=== PATIENT | female | born 1940 | race Caucasian/White ===

== ENCOUNTER → 2017-02-09 | Outpatient (CLI) | payer OTHER ==
[~2017-02-09] MED LIST: ACET-1138 PO; ADVIN25050 INH; ALLO300T2 PO; ASPEC325 PO; ATEN-175 PO; COLC0.6T54 PO; FELO1TAB7 PO; GABA-113 PO; IBUP-103 PO; LOSA50TA55 PO; MECLIZINE PO; RXC5 PO
--- NOTE | 2017-02-10 08:14 | MAMMOGRAPHY REPORT ---
BILATERAL DIGITAL SCREENING MAMMOGRAM WITH CAD: 02/09/2017 CLINICAL HISTORY: Routine screening. Patient has no complaints. TECHNIQUE: Bilateral CC and MLO views were obtained. Current study was also evaluated with a Compute r Aided Detection (CAD) system. COMPARISON: Comparison is made to exams dated: 01/24/2016 mammogram, 11/01/2014 mammogram, 10/19/2013 m ammogram, 09/13/2012 mammogram, 07/29/2011 mammogram, and 07/08/2010 mammogram - [facility]. BREAST COMPOSITION: There are scattered areas of fibroglandular density in both breasts. FINDINGS: There is a stable 8 mm nodular asymmetry in the lateral posterior right breast on the CC v iew, that is unchanged mammographically dating back to at least 07/08/2010, therefore likely benign. Another stable asymmetry is seen in the far posterior left breast along the posterior nipple line on the CC view. There are stable clustered and grouped faint punctate microcalcifications in each post erior breast and a few benign rim calcifications bilaterally. No suspicious mass, architectural disto rtion or cluster of new, suspicious microcalcifications is seen. IMPRESSION: ACR BI-RADS CATEGORY 2: BENIGN There is no mammographic evidence of malignancy. A 1 year screening mammogram is recommended. The pa tient will receive written notification of the results. Approximately 10% of breast cancers are not detected with mammography. A negative mammographic report should not delay biopsy if a clinically suggestive mass is present. Sari Arroyo M.D. ay/:02/09/2017 15:49:35 [place] Tender: Beena Magdaleno RT(Joe)(Jose)(DARON), [facility] letter sent: Normal 1/2 BI-RADS Code: ACR BI-RADS Category 2: Benign
== END | disposition home or self-care (01) ==
LOC: C.MAMM 13:48
PROVIDERS: ATTEND Family Medicine
DX: Z12.31 Encounter for screening mammogram for malignant neoplasm of breast (principal)

== ENCOUNTER 2025-04-08 11:58 | Inpatient (IN) ==
[2025-04-08] MEDS: OPTIRAY 320 125ml IV ONE (12:25)
--- NOTE | 2025-04-08 12:31 | Emergency Department Note ---
Impression & Plan Diplopia, Stroke-like symptoms ED Provider Note Provider: Beka Fuchs MD CHIEF COMPLAINT: Double vision, dizziness HISTORY OF PRESENT ILLNESS: Patient is a 84-year-old female history of hypertension, COPD, pancreatitis, and dizziness/vertigo presenting here today via ambulance from home. Patient states that she woke up this morning was feeling fine. Has a long history of vertigo/dizziness in the past and started feel little bit off. Took a meclizine and then around 9:30-10 AM had sudden onset of severe double vision issues. States when she looks out of 1 eye at a time things were okay. She denies visual loss. She denies any speech issues or numbness or tingling in extremities or face. Denies falling. Is on a baby aspirin but does not have a history of similar. Called the ambulance and brought here for further care as she felt that something just was not quite right. Maybe just a slight headache reported. PAST MEDICAL HISTORY: As noted above MEDICATIONS: Reviewed home medications includes aspirin SOCIAL HISTORY: Non-smoker PHYSICAL EXAM: GENERAL: alert and oriented in no acute distress on stretcher Head: normocephalic and atraumatic EYES: No injection, discharge or icterus. PERRL, extraocular deficits with inability to adduct the right eye to the left. NECK: Trachea midline. Supple. ENT: Mucous membranes pink and moist. LUNGS: Airway patent. No retractions. Breath sounds clear HEART: Regular rate and rhythm. No chest wall tenderness ABDOMEN: Soft and non-tender, without guarding or rebound SKIN: Acyanotic, warm, dry, without rashes EXTREMITIES: Without swelling, tenderness or deformity NEUROLOGICAL: No aphasia. No facial droop or slurred speech. Normal strength and tone in the extremities. Sensation to gross touch normal. I deficits as above. EK beats per minute. Normal sinus rhythm. No PVC or PAC. Inferior lateral T wave inversions with left axis and some LVH changes. QTc 467. No ST segment elevation noted. CONTINUOUS CARDIAC MONITORING: was ordered and showed a heart rate of 60s bpm in normal sinus rhythm Patient's laboratory studies and imaging reviewed. Differential includes Infection, dehydration, metabolic abnormality, hypo/hyperglycemia, electrolyte disturbance, anemia, hypoxia, cardiac sources, intracerebral event, toxicologic, neurologic, as well as other pathologies. IMPRESSION/MEDICAL DECISION MAKING: Evaluated in room before shortly after arrival from the ambulance and made a stroke alert. Evidence of a likely 6th nerve palsy. No other significant deficits on exam. Sent for CT and CT angiograms. Last known well approximately 10 AM and as such reached out and discussed and evaluated by the telestroke service at [place] [facility]. [place]. CT head without acute bleed. Discussed with daughter later arrives. Stressed at bedside regarding recent benefits of the procedure with thrombolytics. Aware of risk of possibly life-threatening bleeding. Contraindications reviewed no negatives. 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 Patient and daughter agree with the plan proceed with TNK. This was administered at bedside. CT angiograms without evidence of significant vascular abnormality or LVO. Blood work completed. Discussed with the hospitalist and sent to the ICU for monitoring. DIAGNOSIS: Diplopia, strokelike symptoms DISPOSITION: Hospitalist will evaluate Patient was agreeable with this plan. Critical Care I have personally spent 38 minutes of critical care time in the direct management of this patient. This includes bedside care, interpretation of diagnostic studies, and testing, discussion with consultants, patient, and family members, and other required patient management activities. These 38 minutes is in excess of all separately billable procedures. Past Med/Surg History Problem List (Updated 04/08/25 @ 13:10 by Beka Fuchs M.D.) Stroke-like symptoms (Acute) Diplopia (Acute) Tibialis anterior tendon tear, traumatic Status post right knee replacement Contusion of right knee Obesity (BMI 30-39.9) Hx of cholecystectomy Hx of appendectomy COPD (chronic obstructive pulmonary disease) HTN (hypertension) (Chronic) Left-sided thoracic back pain (Acute) Medical History Contusion of right knee COPD (chronic obstructive pulmonary disease) HTN (hypertension) Obesity (BMI 30-39.9) Pancreatitis Tibialis anterior tendon tear, traumatic Surgical History Status post right knee replacement Social History Smoking Status: Never smoker Preferred Language: Com[place] current occupational status: retired Feels Safe at Home: Yes Allergies Allergies Allergy/AdvReac Type Severity Reaction Status Date / Time WANDY Inhibitors Allergy Unknown high bp Verified 08/10/20 20:20 hydrocodone AdvReac Intermediate N/V Verified 08/10/20 20:20 Home Meds Home Medications Medication Instructions Recorded Confirmed allopurinol 300 mg tablet 300 mg PO QAM 07/21/18 04/08/25 aspirin 81 mg tablet,delayed 81 mg PO HS 07/21/18 04/08/25 release escitalopram oxalate 10 mg tablet 10 mg PO QAM 07/21/18 04/08/25 felodipine 2.5 mg tablet,extended 2.5 mg PO QAM 07/21/18 04/08/25 release 24 hr fluticasone 250 mcg-salmeterol 50 1 inh inhalation DIRECTED 07/21/18 04/08/25 mcg/dose blistr powdr for inhalation (Advair Diskus) metoprolol succinate 50 mg 50 mg PO HS 07/21/18 04/08/25 tablet,extended release 24 hr omeprazole 20 mg capsule,delayed 20 mg PO Q2D 07/21/18 04/08/25 release escitalopram oxalate 5 mg tablet 5 mg PO QPM 08/10/20 04/08/25 gabapentin 600 mg tablet 600 mg PO HS 04/08/25 04/08/25 losartan 100 mg tablet 100 mg PO DAILY 04/08/25 04/08/25 semaglutide 2 mg/dose (8 mg/3 mL) 8 mg subcut WK 04/08/25 04/08/25 subcutaneous pen injector (Ozempic) Results & Data (ED) Vital Signs Vital Signs - 24 hr 04/08/25 12:05 04/08/25 12:08 04/08/25 12:30 Temperature 36.4 C L Temperature Source Oral Pulse Rate 69 70 70 Pulse Rate [Apical] Pulse Rate from SpO2 Sensor Respiratory Rate 18 11 L Respiratory Effort / Characteristics Respiratory Depth Respiratory Pattern Blood Pressure 152/117 H 157/73 H Blood Pressure [Right Arm] Blood Pressure Mean 128 101 Blood Pressure Mean [Right Arm] Blood Pressure Position Sitting Pulse Oximetry 93 Oxygen Delivery Method Room Air Sepsis Recent Fever Within 48 Hours No Sepsis New/Unexplained Change in Mental Status No Sepsis Action Taken by Nursing No Action Required 04/08/25 12:48 04/08/25 13:07 04/08/25 13:22 Temperature 36.6 C 36.5 C Temperature Source Oral Oral Pulse Rate 69 Pulse Rate [Apical] 64 62 Pulse Rate from SpO2 Sensor 67 Respiratory Rate 23 16 20 Respiratory Effort / Characteristics Non-Labored Spontaneous Non-Labored Spontaneous Respiratory Depth Normal Normal Respiratory Pattern Regular Regular Blood Pressure 161/65 H Blood Pressure [Right Arm] 155/76 H 153/86 H Blood Pressure Mean 97 Blood Pressure Mean [Right Arm] 102 108 Blood Pressure Position Pulse Oximetry 95 96 95 Oxygen Delivery Method Room Air Room Air Sepsis Recent Fever Within 48 Hours Sepsis New/Unexplained Change in Mental Status Sepsis Action Taken by Nursing 04/08/25 13:37 04/08/25 13:52 04/08/25 14:07 Temperature 36.6 C 36.6 C 36.5 C Temperature Source Oral Oral Oral Pulse Rate Pulse Rate [Apical] 62 62 60 Pulse Rate from SpO2 Sensor Respiratory Rate 18 18 18 Respiratory Effort / Characteristics Non-Labored Spontaneous Non-Labored Spontaneous Non-Labored Spontaneous Respiratory Depth Normal Normal Normal Respiratory Pattern Regular Regular Regular Blood Pressure Blood Pressure [Right Arm] 128/65 140/67 144/74 H Blood Pressure Mean Blood Pressure Mean [Right Arm] 86 91 97 Blood Pressure Position Pulse Oximetry 96 97 97 Oxygen Delivery Method Room Air Room Air Room Air Sepsis Recent Fever Within 48 Hours Sepsis New/Unexplained Change in Mental Status Sepsis Action Taken by Nursing 04/08/25 14:22 Temperature 36.5 C Temperature Source Oral Pulse Rate Pulse Rate [Apical] 61 Pulse Rate from SpO2 Sensor Respiratory Rate 18 Respiratory Effort / Characteristics Non-Labored Spontaneous Respiratory Depth Normal Respiratory Pattern Regular Blood Pressure Blood Pressure [Right Arm] 149/70 H Blood Pressure Mean Blood Pressure Mean [Right Arm] 96 Blood Pressure Position Pulse Oximetry 97 Oxygen Delivery Method Room Air Sepsis Recent Fever Within 48 Hours Sepsis New/Unexplained Change in Mental Status Sepsis Action Taken by Nursing Laboratory Data 04/08/25 12:05 04/08/25 12:05 Lab Results 04/08/25 04/08/25 04/08/25 Range/Units 12:05 12:22 12:45 WBC 9.04 (4.8-10.8) K/ul RBC 4.78 (4.20-5.40) M/uL Hgb 14.6 (12.0-16.0) g/dL POC Hgb 13.6 (12.0-16.0) g/dl Hct 41.8 (37.0-47.0) % POC Hct 40 (37-47) % MCV 87.4 (80.0-100.0) fL MCH 30.5 (25.0-34.0) pg MCHC 34.9 (32.0-36.0) g/dL RDW Std Deviation 41.9 (36.4-46.3) fL RDW Coeff of Echo 13.1 (11.5-14.5) % Plt Count 266 (130-400) K/uL MPV 9.3 L (9.4-12.4) fL Immature Gran % (Auto) 0.4 % Neut % (Auto) 55.2 % Lymph % (Auto) 29.9 % [place] % (Auto) 8.2 % Eos % (Auto) 6.0 % Baso % (Auto) 0.3 % Neut # (Auto) 4.99 (1.40-6.50) K/uL Lymph # (Auto) 2.70 (1.20-3.40) K/uL [place] # (Auto) 0.74 H (0.11-0.59) K/uL Eos # (Auto) 0.54 H (0.00-0.50) K/uL Baso # (Auto) 0.03 (0.00-0.20) K/uL Immature Gran # (Auto) 0.04 (0.01-0.20) K/uL PT 10.4 (9.0-12.0) Seconds INR 1.0 (0.9-1.1) APTT 26 (21-31) Seconds PTT Ratio 1.0 POC Sodium 141 (135-144) mmol/L Sodium 139 (136-145) mmol/L POC Potassium 3.9 (3.3-5.0) mmol/L Potassium 4.1 (3.5-5.1) mmol/L POC Chloride 103 (101-112) mmol/L Chloride 106 (98-107) mmol/L Carbon Dioxide 27 (21-32) mmol/L POC Total CO2 24 (24-31) mmol/L Anion Gap 6 (3-11) POC Anion Gap 19.0 (16-25) mmol/L POC BUN 17 (7-18) mg/dl BUN 16 (6-23) mg/dl Creatinine 0.56 L (0.6-1.2) mg/dl POC Creatinine 0.6 (0.6-1.3) mg/dl Est Cr Clr Drug Dosing 70.1 ml/min eGFR 90.50 BUN/Creatinine Ratio 28.6 H (10-20) Glucose 95 (70-99(Fasting)) mg/dl POC Glucose 77 (70-99) mg/dl POC Glucose (other) 93 (70-99) mg/dl Calcium 9.0 (8.6-10.3) mg/dl POC Ioniz Calcium Oriana 1.21 (1.12-1.32) mmol/l Magnesium 1.6 L (1.7-2.4) mg/dl Total Bilirubin 0.5 (0.2-1.0) mg/dl AST 18 (13-39) U/L ALT 11 (7-52) U/L Alkaline Phosphatase 53 (34-104) U/L Troponin I High Sens 3.8 (0-14) pg/ml Total Protein 6.9 (6.0-8.3) gm/dl Albumin 4.2 (3.4-5.0) gm/dl Globulin 2.7 (2.5-4.0) gm/dl Albumin/Globulin Ratio 1.6 (0.9-2) Administered Medications Discontinued Medications Tenecteplase 18.5 mg/ Syringe 3.7 mls @ 44.4 mls/min IV NOW ONE; Protocol Stop: 04/08/25 13:09 Last Admin: 04/08/25 12:52 Dose: 44.4 mls/min Documented By: JACKIE Co-signed By: NAVDEEP Ioversol (Optiray 320 125ml) 112 ml IV ONCE ONE Stop: 04/08/25 12:26 Last Admin: 04/08/25 12:25 Dose: 112 ml Documented By: MARY Sodium Chloride (Sodium Chloride 0.9% 10ml Flush) 20 ml IV NOW STA Stop: 04/08/25 12:59 Last Admin: 04/08/25 12:52 Dose: 20 ml Documented By: JACKIE Imaging Data Radiologist's Impression: Head CT 04/08/25 12:11 EXAM: CT Head Without Intravenous Contrast INDICATION: Neurologic deficit TECHNIQUE: Axial computed tomography images of the head/brain without intravenous contrast. Sagittal and/or coronal reformats are provided. Sagittal and coronal reformatted images were created and reviewed. This CT exam was performed using one or more of the following dose reduction techniques: automated exposure control, adjustment of the mA and/or kV according to patient size, and/or use of iterative reconstruction technique. COMPARISON: No relevant prior studies available. FINDINGS: Limitations: None. Brain and extra-axial spaces: There is age appropriate cortical atrophy and chronic ischemic periventricular white matter hypodensity. No acute infarct, hemorrhage or mass noted. Bones/joints: No acute changes. Soft tissues: No acute abnormality noted. Vasculature: No acute abnormality noted. Sinuses: No layering fluid in the visualized portions of the paranasal sinuses. Mastoid air cells: No mastoid effusion. Orbits: No acute abnormality noted. IMPRESSION: Cerebral atrophy. No acute changes. ACT 112: N/A Electronically signed by Marii Dsouza 04-08-2025 12:52 PM Head CTA 04/08/25 12:11 [place] Images: 0 EXAM: CT Angiography Head and Neck With Intravenous Contrast INDICATION: Neurologic deficit TECHNIQUE: [place]/head and neck CT angiography protocol performed with intravenous contrast. Sagittal and coronal reformatted images were created and reviewed. This CT exam was performed using one or more of the following dose reduction techniques: automated exposure control, adjustment of the mA and/or kV according to patient size, and/or use of iterative reconstruction technique. MIP reconstructed images were created and reviewed. CONTRAST: 112 ml of Optiray 320 was administered intravenously. COMPARISON: None. FINDINGS: HEAD: Right anterior cerebral artery: No abnormality noted. No occlusion or significant stenosis. Anterior communicating artery is present. No aneurysm. Right middle cerebral artery: No abnormality noted. No occlusion or significant stenosis. No aneurysm. Right posterior cerebral artery: No abnormality noted. No occlusion or significant stenosis. No aneurysm. Right intracranial internal carotid artery: No abnormality noted. No significant stenosis. No dissection or occlusion. Right intracranial vertebral artery: No abnormality noted. No significant stenosis. No dissection or occlusion. Left anterior cerebral artery: No abnormality noted. No occlusion or significant stenosis. No aneurysm. Left middle cerebral artery: No abnormality noted. No occlusion or significant stenosis. No aneurysm. Left posterior cerebral artery: No abnormality noted. No occlusion or significant stenosis. No aneurysm. Left intracranial internal carotid artery: No abnormality noted. No significant stenosis. No dissection or occlusion. Left intracranial vertebral artery: No abnormality noted. No significant stenosis. No dissection or occlusion. Basilar artery: No abnormality noted. No occlusion or significant stenosis. No aneurysm. Other vasculature: Patent dural venous sinuses. No vascular malformation. Mastoid air cells: There is mild mucosal thickening in the base of the right mastoid. No fluid. NECK: Right common carotid artery: No abnormality noted. No significant stenosis. No dissection or occlusion. Right extracranial internal carotid artery: There is mild atherosclerotic calcification of the right cervical internal carotid bulb. No stenosis, dissection or aneurysm. Right external carotid artery: No abnormality noted. No occlusion. Right extracranial vertebral artery: No abnormality noted. No significant stenosis. No dissection or occlusion. Left common carotid artery: No abnormality noted. No significant stenosis. No dissection or occlusion. Left extracranial internal carotid artery: No abnormality noted. No significant stenosis. No dissection or occlusion. Left external carotid artery: No abnormality noted. No occlusion. Left extracranial vertebral artery: No abnormality noted. No significant stenosis. No dissection or occlusion. Lung apices: No acute abnormality noted. HEAD and NECK: Bones/joints: No significant abnormality. Soft tissues: No abnormality noted. CAROTID STENOSIS REFERENCE USING NASCET CRITERIA: % ICA stenosis = (1 - narrowest ICA diameter/diameter of distal cervical ICA) x 100. Mild - <50% stenosis. Moderate - 50-69% stenosis. Severe - 70-94% stenosis. Near occlusion - 95-99% stenosis. Occluded - 100% stenosis. IMPRESSION: No large vessel occlusion, aneurysm or dissection in the arteries of the head or neck. ACT 112: N/A Electronically signed by Marii Dsouza 04-08-2025 13:24 PM Neck CTA 04/08/25 12:11 EXAM: CT Angiography Head and Neck With Intravenous Contrast INDICATION: Neurologic deficit TECHNIQUE: [place]/head and neck CT angiography protocol performed with intravenous contrast. Sagittal and coronal reformatted images were created and reviewed. This CT exam was performed using one or more of the following dose reduction techniques: automated exposure control, adjustment of the mA and/or kV according to patient size, and/or use of iterative reconstruction technique. MIP reconstructed images were created and reviewed. CONTRAST: 112 ml of Optiray 320 was administered intravenously. COMPARISON: None. FINDINGS: HEAD: Right anterior cerebral artery: No abnormality noted. No occlusion or significant stenosis. Anterior communicating artery is present. No aneurysm. Right middle cerebral artery: No abnormality noted. No occlusion or significant stenosis. No aneurysm. Right posterior cerebral artery: No abnormality noted. No occlusion or significant stenosis. No aneurysm. Right intracranial internal carotid artery: No abnormality noted. No significant stenosis. No dissection or occlusion. Right intracranial vertebral artery: No abnormality noted. No significant stenosis. No dissection or occlusion. Left anterior cerebral artery: No abnormality noted. No occlusion or significant stenosis. No aneurysm. Left middle cerebral artery: No abnormality noted. No occlusion or significant stenosis. No aneurysm. Left posterior cerebral artery: No abnormality noted. No occlusion or significant stenosis. No aneurysm. Left intracranial internal carotid artery: No abnormality noted. No significant stenosis. No dissection or occlusion. Left intracranial vertebral artery: No abnormality noted. No significant stenosis. No dissection or occlusion. Basilar artery: No abnormality noted. No occlusion or significant stenosis. No aneurysm. Other vasculature: Patent dural venous sinuses. No vascular malformation. Mastoid air cells: There is mild mucosal thickening in the base of the right mastoid. No fluid. NECK: Right common carotid artery: No abnormality noted. No significant stenosis. No dissection or occlusion. Right extracranial internal carotid artery: There is mild atherosclerotic calcification of the right cervical internal carotid bulb. No stenosis, dissection or aneurysm. Right external carotid artery: No abnormality noted. No occlusion. Right extracranial vertebral artery: No abnormality noted. No significant stenosis. No dissection or occlusion. Left common carotid artery: No abnormality noted. No significant stenosis. No dissection or occlusion. Left extracranial internal carotid artery: No abnormality noted. No significant stenosis. No dissection or occlusion. Left external carotid artery: No abnormality noted. No occlusion. Left extracranial vertebral artery: No abnormality noted. No significant stenosis. No dissection or occlusion. Lung apices: No acute abnormality noted. HEAD and NECK: Bones/joints: No significant abnormality. Soft tissues: No abnormality noted. CAROTID STENOSIS REFERENCE USING NASCET CRITERIA: % ICA stenosis = (1 - narrowest ICA diameter/diameter of distal cervical ICA) x 100. Mild - <50% stenosis. Moderate - 50-69% stenosis. Severe - 70-94% stenosis. Near occlusion - 95-99% stenosis. Occluded - 100% stenosis. IMPRESSION: No large vessel occlusion, aneurysm or dissection in the arteries of the head or neck. ACT 112: N/A Electronically signed by Marii Dsouza 04-08-2025 12:52 PM Discharge Plan Visit Data Chief Complaint: Vertigo Stated Complaint: Vertigo/diplopia ED Provider: Beka Fuchs Discharge Problem: Diplopia, Stroke-like symptoms Patient Disposition: Admitted As Inpatient Condition: Serious Forms Stand Alone Forms: [facility] Prescriptions Prescriptions: No Action fluticasone propion-salmeterol [Advair Diskus] 250-50 mcg/dose Blister With Device 1 inh INHALATION DIRECTED felodipine 2.5 mg tablet extended release 24 hr 2.5 mg PO QAM metoprolol succinate 50 mg tablet extended release 24 hr 50 mg PO HS Rx Instructions: TUESDAYS aspirin 81 mg Tablet,Delayed Release (Dr/Ec) 81 mg PO HS omeprazole 20 mg capsule,delayed release(DR/EC) 20 mg PO Q2D allopurinol 300 mg tablet 300 mg PO QAM escitalopram oxalate 10 mg tablet 10 mg PO QAM Rx Instructions: Take with 5mg to make 15mg escitalopram oxalate 5 mg tablet 5 mg PO QPM Rx Instructions: Take with 10mg to make 15mg gabapentin 600 mg tablet 600 mg PO HS losartan 100 mg tablet 100 mg PO DAILY Ozempic 2 mg/dose (8 mg/3 mL) pen injector 8 mg SUBCUT WK Referrals Referrals: Chantelle Rojas DO [Primary Care Provider] -
[2025-04-08 12:33] LABS: Hematocrit (blood only) 41.8 % (37.0-47.0); Hemoglobin 14.6 g/dL (12.0-16.0); Immature Granulocytes # (auto) 0.04 K/uL (0.01-0.20); Immature Granulocytes % (auto) 0.4 %; Mean Corpuscular Hemoglobin 30.5 pg (25.0-34.0); Mean Corpuscular Volume 87.4 fL (80.0-100.0); Platelet Count 266 K/uL (130-400); RDW Standard Deviation 41.9 fL (36.4-46.3); Red Blood Count 4.78 M/uL (4.20-5.40); White Blood Count 9.04 K/ul (4.8-10.8)
[2025-04-08 12:52] LABS: Alanine Aminotransferase 11.0 U/L (7-52); Albumin Globulin Ratio 1.6 (0.9-2); Albumin Level 4.2 gm/dl (3.4-5.0); Alkaline Phosphatase 53.0 U/L (34-104); Anion Gap 6.0 (3-11); Bilirubin,Total 0.5 mg/dl (0.2-1.0); Blood Urea Nitrogen 16.0 mg/dl (6-23); Calcium 9.0 mg/dl (8.6-10.3); Carbon Dioxide 27.0 mmol/L (21-32); Chloride 106.0 mmol/L (98-107); Creatinine Clr Calc Pharmacy 70.1 ml/min; Globulin 2.7 gm/dl (2.5-4.0); Glucose 95.0 mg/dl (70-99(Fasting)); Magnesium 1.6 mg/dl (1.7-2.4); Potassium 4.1 mmol/L (3.5-5.1); Sodium 139.0 mmol/L (136-145); Total Protein 6.9 gm/dl (6.0-8.3)
[2025-04-08] MEDS: SODIUM CHLORIDE 0.9% 10ML FLUSH IV STA (12:52)
--- NOTE | 2025-04-08 12:53 | CT Scan Report ---
EXAM: CT Head Without Intravenous Contrast INDICATION: Neurologic deficit TECHNIQUE: Axial computed tomography images of the head/brain without intravenous contrast. Sagittal and/or coronal reformats are provided. Sagittal and coronal reformatted images were created and reviewed. This CT exam was performed using one or more of the following dose reduction techniques: automated exposure control, adjustment of the mA and/or kV according to patient size, and/or use of iterative reconstruction technique. COMPARISON: No relevant prior studies available. FINDINGS: Limitations: None. Brain and extra-axial spaces: There is age appropriate cortical atrophy and chronic ischemic periventricular white matter hypodensity. No acute infarct, hemorrhage or mass noted. Bones/joints: No acute changes. Soft tissues: No acute abnormality noted. Vasculature: No acute abnormality noted. Sinuses: No layering fluid in the visualized portions of the paranasal sinuses. Mastoid air cells: No mastoid effusion. Orbits: No acute abnormality noted. IMPRESSION: Cerebral atrophy. No acute changes. ACT 112: N/A Electronically signed by Marii Dsouza 04-08-2025 12:52 PM
[2025-04-08] MEDS ORDERED: No Aspirin within 24hrs of THROMBOLYTIC-Stroke PO SCH (13:00)
[2025-04-08 13:07] LABS: INR 1.0 (0.9-1.1); Partial Thromboplastin Time 26 Seconds (21-31); Prothrombin Time 10.4 Seconds (9.0-12.0)
--- NOTE | 2025-04-08 13:17 | History & Physical Report ---
Date of Service April 08, 2025 History of Present Illness Primary Care Provider: Chantelle Rojas DO Allergies Allergy/AdvReac Type Severity Reaction Status Date / Time WANDY Inhibitors Allergy Unknown high bp Verified 08/10/20 20:20 hydrocodone AdvReac Intermediate N/V Verified 08/10/20 20:20 Home Medications Medication Instructions Recorded Confirmed Type allopurinol 300 mg tablet 300 mg PO QAM 07/21/18 08/10/20 History aspirin 81 mg tablet,delayed 81 mg PO HS 07/21/18 08/10/20 History release escitalopram oxalate 10 mg tablet 10 mg PO QAM 07/21/18 08/10/20 History felodipine 2.5 mg tablet,extended 2.5 mg PO QAM 07/21/18 08/10/20 History release 24 hr fluticasone 250 mcg-salmeterol 50 1 inh inhalation DIRECTED 07/21/18 08/10/20 History mcg/dose blistr powdr for inhalation (Advair Diskus) gabapentin 400 mg capsule 400 mg PO HS 07/21/18 08/10/20 History losartan 100 1 tab PO QAM 07/21/18 08/10/20 History mg-hydrochlorothiazide 12.5 mg tablet metoprolol succinate 50 mg 50 mg PO HS 07/21/18 08/10/20 History tablet,extended release 24 hr omeprazole 20 mg capsule,delayed 20 mg PO Q2D 07/21/18 08/10/20 History release cholecalciferol (vitamin D3) 25 0 mcg PO QAM 08/10/20 08/10/20 History mcg (1,000 unit) tablet (Vitamin D3) escitalopram oxalate 5 mg tablet 5 mg PO QAM 08/10/20 08/10/20 History Past Med/Surg History Problem List (Updated 04/08/25 @ 13:10 by Beka Fuchs M.D.) Stroke-like symptoms (Acute) Diplopia (Acute) Tibialis anterior tendon tear, traumatic Status post right knee replacement Contusion of right knee Obesity (BMI 30-39.9) Hx of cholecystectomy Hx of appendectomy COPD (chronic obstructive pulmonary disease) HTN (hypertension) (Chronic) Left-sided thoracic back pain (Acute) Medical History Contusion of right knee COPD (chronic obstructive pulmonary disease) HTN (hypertension) Obesity (BMI 30-39.9) Pancreatitis Tibialis anterior tendon tear, traumatic Surgical History Status post right knee replacement Social History Smoking Status: Never smoker Preferred Language: Macedonian current occupational status: retired Feels Safe at Home: Yes Results & Data Results & Data Vital Signs (Past 12 Hours) Vital Signs Temp Pulse Pulse Resp BP BP Pulse Ox 04/08/25 13:07 36.6 C 64 16 155/76 H 96 04/08/25 12:48 69 23 161/65 H 95 04/08/25 12:30 70 11 L 157/73 H 04/08/25 12:08 70 04/08/25 12:05 36.4 C L 69 18 152/117 H 93 O2 Del Method 04/08/25 13:07 Room Air 04/08/25 12:48 04/08/25 12:30 04/08/25 12:08 04/08/25 12:05 Room Air
--- NOTE | 2025-04-08 13:25 | CT Scan Report ---
[facility] Images: 0 EXAM: CT Angiography Head and Neck With Intravenous Contrast INDICATION: Neurologic deficit TECHNIQUE: [place] [facility] [place]/head and neck CT angiography protocol performed with intravenous contrast. Sagittal and coronal reformatted images were created and reviewed. This CT exam was performed using one or more of the following dose reduction techniques: automated exposure control, adjustment of the mA and/or kV according to patient size, and/or use of iterative reconstruction technique. MIP reconstructed images were created and reviewed. CONTRAST: 112 ml of Optiray 320 was administered intravenously. COMPARISON: None. FINDINGS: HEAD: Right anterior cerebral artery: No abnormality noted. No occlusion or significant stenosis. Anterior communicating artery is present. No aneurysm. Right middle cerebral artery: No abnormality noted. No occlusion or significant stenosis. No aneurysm. Right posterior cerebral artery: No abnormality noted. No occlusion or significant stenosis. No aneurysm. Right intracranial internal carotid artery: No abnormality noted. No significant stenosis. No dissection or occlusion. Right intracranial vertebral artery: No abnormality noted. No significant stenosis. No dissection or occlusion. Left anterior cerebral artery: No abnormality noted. No occlusion or significant stenosis. No aneurysm. Left middle cerebral artery: No abnormality noted. No occlusion or significant stenosis. No aneurysm. Left posterior cerebral artery: No abnormality noted. No occlusion or significant stenosis. No aneurysm. Left intracranial internal carotid artery: No abnormality noted. No significant stenosis. No dissection or occlusion. Left intracranial vertebral artery: No abnormality noted. No significant stenosis. No dissection or occlusion. Basilar artery: No abnormality noted. No occlusion or significant stenosis. No aneurysm. Other vasculature: Patent dural venous sinuses. No vascular malformation. Mastoid air cells: There is mild mucosal thickening in the base of the right mastoid. No fluid. NECK: Right common carotid artery: No abnormality noted. No significant stenosis. No dissection or occlusion. Right extracranial internal carotid artery: There is mild atherosclerotic calcification of the right cervical internal carotid bulb. No stenosis, dissection or aneurysm. Right external carotid artery: No abnormality noted. No occlusion. Right extracranial vertebral artery: No abnormality noted. No significant stenosis. No dissection or occlusion. Left common carotid artery: No abnormality noted. No significant stenosis. No dissection or occlusion. Left extracranial internal carotid artery: No abnormality noted. No significant stenosis. No dissection or occlusion. Left external carotid artery: No abnormality noted. No occlusion. Left extracranial vertebral artery: No abnormality noted. No significant stenosis. No dissection or occlusion. Lung apices: No acute abnormality noted. HEAD and NECK: Bones/joints: No significant abnormality. Soft tissues: No abnormality noted. CAROTID STENOSIS REFERENCE USING NASCET CRITERIA: % ICA stenosis = (1 - narrowest ICA diameter/diameter of distal cervical ICA) x 100. Mild - <50% stenosis. Moderate - 50-69% stenosis. Severe - 70-94% stenosis. Near occlusion - 95-99% stenosis. Occluded - 100% stenosis. IMPRESSION: No large vessel occlusion, aneurysm or dissection in the arteries of the head or neck. ACT 112: N/A Electronically signed by Marii Dsouza 04-08-2025 13:24 PM
--- NOTE | 2025-04-08 13:34 | History & Physical Report ---
Date of Service April 08, 2025 Assessment & Plan (1) Stroke-like symptoms: Plan: Patient is a 84year old F with a past medical history of Type II DM, hypertension, positional vertigo, nonrheumatic mitral regurg, PVC, peripheral neuropathy, achilles tendonitis (right foot) GERD presenting with stroke-like symptoms. Symptoms began around 9:30 this morning with dizziness and took meclizine without relief. Developed double vision, gait instability, dizziness, left eye palsy at 10am and came here. Hypertensive in ED. R/O stroke in setting of focal deficits, diplopia Admit to ICU for further evaluation and management stroke-like symptoms Presenting with dizziness, diplopia, only seeing out of 1 eye, left eye palsy, ambulatory dysfunction starting at 10am s/p TNK at [address] neg Tele stroke eval in ED; formal Neuro consult ordered and pending MRI Brain ordered and pending Repeat CT head tomorrow at 1pm Echo ordered and pending No aspirin/plavix x 24 hours s/p TNK NPO- will need bedside swallow eval; advance diet as tolerated Lipids in the morning Additional plan per ICU attending #Hypertension Hypertensive in ED 152/117, down trend now 153/86 On felodipine, losartan and metoprolol at home- hold losartan #Diabetes Mellitus Type II-controlled Hold home ozempic A1C at 5% will recheck A1C in AM per stroke workup SSI while inpatient for Goal BSG 140-180 #COPD-asthma On Advair at home #GERD cotinue home PPI DVT Ppx: Scds Code status: Full PCP: Dr. Chantelle Rojas Dispo: Admit to ICU for stroke workup and management Patient seen in collaboration with Dr. Hill. Please see addendum.I spent a total of 60 minutes coordinating, documenting and providing care for this patient excluding time spent in the performance of separately billed services or time spent by another provider/QHP. (2) Diplopia: (3) COPD (chronic obstructive pulmonary disease): (4) HTN (hypertension): History of Present Illness Primary Care Provider: Chantelle Rojas DO Patient is a 84year old F with a past medical history of Type II DM, hypertension, positional vertigo, nonrheumatic mitral regurg, PVC, peripheral neuropathy, achilles tendonitis (right foot) GERD presenting with stroke-like symptoms. Symptoms began around 9:30 this morning with dizziness and took meclizine without relief. Developed double vision, gait instability, dizziness, left eye palsy at 10am and came here. Hypertensive in ED. Denies fever, chills, weight loss, weakness, headache, cognitive changes, hearing changes, chest pain, SOB, swelling, difficulty breathing, urinary concerns, N/V/D, joint swelling/pain, skin rashes, lesions, bleeding, bruising. Discussed with ED provider stroke workup, treatment in the ED and reason for admission to ICU status post TNK administration. In the emergency department, patient was hypertensive 150's/110's. Diplopia and ocular motor palsy noted in the ED. Symptoms began at 10am, tele neuro consult in the ED with rec for TNK administered at 1252. On aspirin at home with no anticoagulation. EKG: NSR with no ST elevation, rate 61 bpm, QTc 467, LVHHead CT revealed negative. Head/Neck CTA showing no large vessel occlusion, aneurysm or dissection in the arteries of the head or neck. Upon review of labs, Mag noted to 1.6 and replaced. No evidence of infection or sepsis. History obtained primarily from the patient and via hospitalization record. The patient's family was at the bedside and assisted with history of present illness. External chart review obtained from [facility] for labs and home medications. Allergies Allergy/AdvReac Type Severity Reaction Status Date / Time WANDY Inhibitors Allergy Unknown high bp Verified 08/10/20 20:20 hydrocodone AdvReac Intermediate N/V Verified 08/10/20 20:20 Home Medications Medication Instructions Recorded Confirmed Type allopurinol 300 mg tablet 300 mg PO QAM 07/21/18 04/08/25 History aspirin 81 mg tablet,delayed 81 mg PO HS 07/21/18 04/08/25 History release escitalopram oxalate 10 mg tablet 10 mg PO QAM 07/21/18 04/08/25 History felodipine 2.5 mg tablet,extended 2.5 mg PO QAM 07/21/18 04/08/25 History release 24 hr fluticasone 250 mcg-salmeterol 50 1 inh inhalation DIRECTED 07/21/18 04/08/25 History mcg/dose blistr powdr for inhalation (Advair Diskus) metoprolol succinate 50 mg 50 mg PO HS 07/21/18 04/08/25 History tablet,extended release 24 hr omeprazole 20 mg capsule,delayed 20 mg PO Q2D 07/21/18 04/08/25 History release escitalopram oxalate 5 mg tablet 5 mg PO QPM 08/10/20 04/08/25 History gabapentin 600 mg tablet 600 mg PO HS 04/08/25 04/08/25 History losartan 100 mg tablet 100 mg PO DAILY 04/08/25 04/08/25 History semaglutide 2 mg/dose (8 mg/3 mL) 8 mg subcut WK 04/08/25 04/08/25 History subcutaneous pen injector (Ozempic) Past Med/Surg History Problem List (Updated 04/08/25 @ 15:40 by John Camarillo MD) tPA adm status 24 hr [employer] Stroke-like symptoms (Acute) Diplopia (Acute) Tibialis anterior tendon tear, traumatic Status post right knee replacement Contusion of right knee Obesity (BMI 30-39.9) Hx of cholecystectomy Hx of appendectomy COPD (chronic obstructive pulmonary disease) HTN (hypertension) (Chronic) Left-sided thoracic back pain (Acute) Medical History Contusion of right knee COPD (chronic obstructive pulmonary disease) HTN (hypertension) Obesity (BMI 30-39.9) Pancreatitis Tibialis anterior tendon tear, traumatic Surgical History Status post right knee replacement Social History Smoking Status: Never smoker Hx Alcohol Use: No Hx Substance Use: No Preferred Language: Slovak Communication Ability: Effective Verify Rep Required: No Beliefs That Will Affect Care: None Current Living Situation: Family current occupational status: retired Feels Safe at Home: Yes Safety Concerns: Feels Safe At This Time Assistive Devices: Cane Review of Systems Review of Systems: All systems reviewed & are unremarkable except as noted in HPI & below Physical Exam Physical Exam: VITALS: Reviewed. WEIGHT/BMI reviewed. GEN: Healthy appearing, well-developed, NAD. PSYCH: Good Judgment. AOx3. Normal memory, mood, and affect. HEENT -Head: NC/AT; -Eyes: PERRL, EOMI. No discharge or redn ess; -Ears: External ears are normal. -Nose: Normal nares. -Mouth and throat: MMM. Normal gums, muc fred, palate,. Good dentition. NECK: Supple, with no masses. Swallowing saliva ok CV: + murmur, no swelling, regular rhythm LUNGS: CTAB, no w/r/c. ABD: Soft, NT/ND, NBS, no masses or organomegaly. : N/A SKIN: Warm, well perfused. No skin rashes or abnormal lesions. MSK: No deformities, Normal gait. EXT: No clubbing, cyanosis, or edema. NEURO: speech clear, left eye palsy, left eye ptosis, facial symmetry intact, right foot drop noted (stated to be baseline), follows command, no arm drift Results & Data Results & Data Vital Signs (Past 12 Hours) Vital Signs Temp Pulse Pulse Resp BP BP Pulse Ox 04/08/25 13:22 36.5 C 62 20 153/86 H 95 04/08/25 13:07 36.6 C 64 16 155/76 H 96 04/08/25 12:48 69 23 161/65 H 95 04/08/25 12:30 70 11 L 157/73 H 04/08/25 12:08 70 04/08/25 12:05 36.4 C L 69 18 152/117 H 93 O2 Del Method 04/08/25 13:22 Room Air 04/08/25 13:07 Room Air 04/08/25 12:48 04/08/25 12:30 04/08/25 12:08 04/08/25 12:05 Room Air Laboratory Results Short CBC 04/08/25 Range/Units 12:05 WBC 9.04 (4.8-10.8) K/ul Hgb 14.6 (12.0-16.0) g/dL Hct 41.8 (37.0-47.0) % Plt Count 266 (130-400) K/uL BMP 04/08/25 12:05 Sodium 139 Potassium 4.1 Chloride 106 Carbon Dioxide 27 BUN 16 Creatinine 0.56 L Glucose 95 Calcium 9.0 Liver Function 04/08/25 Range/Units 12:05 Total Bilirubin 0.5 (0.2-1.0) mg/dl AST 18 (13-39) U/L ALT 11 (7-52) U/L Alkaline Phosphatase 53 (34-104) U/L Albumin 4.2 (3.4-5.0) gm/dl Diagnostic Findings Head CT 04/08/25 12:11 EXAM: CT Head Without Intravenous Contrast INDICATION: Neurologic deficit TECHNIQUE: Axial computed tomography images of the head/brain without intravenous contrast. Sagittal and/or coronal reformats are provided. Sagittal and coronal reformatted images were created and reviewed. This CT exam was performed using one or more of the following dose reduction techniques: automated exposure control, adjustment of the mA and/or kV according to patient size, and/or use of iterative reconstruction technique. COMPARISON: No relevant prior studies available. FINDINGS: Limitations: None. Brain and extra-axial spaces: There is age appropriate cortical atrophy and chronic ischemic periventricular white matter hypodensity. No acute infarct, hemorrhage or mass noted. Bones/joints: No acute changes. Soft tissues: No acute abnormality noted. Vasculature: No acute abnormality noted. Sinuses: No layering fluid in the visualized portions of the paranasal sinuses. Mastoid air cells: No mastoid effusion. Orbits: No acute abnormality noted. IMPRESSION: Cerebral atrophy. No acute changes. ACT 112: N/A Electronically signed by Marii Dsouza 04-08-2025 12:52 PM Head CTA 04/08/25 12:11 [place] Images: 0 EXAM: CT Angiography Head and Neck With Intravenous Contrast INDICATION: Neurologic deficit TECHNIQUE: [place] [facility] [place]/head and neck CT angiography protocol performed with intravenous contrast. Sagittal and coronal reformatted images were created and reviewed. This CT exam was performed using one or more of the following dose reduction techniques: automated exposure control, adjustment of the mA and/or kV according to patient size, and/or use of iterative reconstruction technique. MIP reconstructed images were created and reviewed. CONTRAST: 112 ml of Optiray 320 was administered intravenously. COMPARISON: None. FINDINGS: HEAD: Right anterior cerebral artery: No abnormality noted. No occlusion or significant stenosis. Anterior communicating artery is present. No aneurysm. Right middle cerebral artery: No abnormality noted. No occlusion or significant stenosis. No aneurysm. Right posterior cerebral artery: No abnormality noted. No occlusion or significant stenosis. No aneurysm. Right intracranial internal carotid artery: No abnormality noted. No significant stenosis. No dissection or occlusion. Right intracranial vertebral artery: No abnormality noted. No significant stenosis. No dissection or occlusion. Left anterior cerebral artery: No abnormality noted. No occlusion or significant stenosis. No aneurysm. Left middle cerebral artery: No abnormality noted. No occlusion or significant stenosis. No aneurysm. Left posterior cerebral artery: No abnormality noted. No occlusion or significant stenosis. No aneurysm. Left intracranial internal carotid artery: No abnormality noted. No significant stenosis. No dissection or occlusion. Left intracranial vertebral artery: No abnormality noted. No significant stenosis. No dissection or occlusion. Basilar artery: No abnormality noted. No occlusion or significant stenosis. No aneurysm. Other vasculature: Patent dural venous sinuses. No vascular malformation. Mastoid air cells: There is mild mucosal thickening in the base of the right mastoid. No fluid. NECK: Right common carotid artery: No abnormality noted. No significant stenosis. No dissection or occlusion. Right extracranial internal carotid artery: There is mild atherosclerotic calcification of the right cervical internal carotid bulb. No stenosis, dissection or aneurysm. Right external carotid artery: No abnormality noted. No occlusion. Right extracranial vertebral artery: No abnormality noted. No significant stenosis. No dissection or occlusion. Left common carotid artery: No abnormality noted. No significant stenosis. No dissection or occlusion. Left extracranial internal carotid artery: No abnormality noted. No significant stenosis. No dissection or occlusion. Left external carotid artery: No abnormality noted. No occlusion. Left extracranial vertebral artery: No abnormality noted. No significant stenosis. No dissection or occlusion. Lung apices: No acute abnormality noted. HEAD and NECK: Bones/joints: No significant abnormality. Soft tissues: No abnormality noted. CAROTID STENOSIS REFERENCE USING NASCET CRITERIA: % ICA stenosis = (1 - narrowest ICA diameter/diameter of distal cervical ICA) x 100. Mild - <50% stenosis. Moderate - 50-69% stenosis. Severe - 70-94% stenosis. Near occlusion - 95-99% stenosis. Occluded - 100% stenosis. IMPRESSION: No large vessel occlusion, aneurysm or dissection in the arteries of the head or neck. ACT 112: N/A Electronically signed by Marii Dsouza 04-08-2025 13:24 PM Neck CTA 04/08/25 12:11 EXAM: CT Angiography Head and Neck With Intravenous Contrast INDICATION: Neurologic deficit TECHNIQUE: [place] [facility] [place]/head and neck CT angiography protocol performed with intravenous contrast. Sagittal and coronal reformatted images were created and reviewed. This CT exam was performed using one or more of the following dose reduction techniques: automated exposure control, adjustment of the mA and/or kV according to patient size, and/or use of iterative reconstruction technique. MIP reconstructed images were created and reviewed. CONTRAST: 112 ml of Optiray 320 was administered intravenously. COMPARISON: None. FINDINGS: HEAD: Right anterior cerebral artery: No abnormality noted. No occlusion or significant stenosis. Anterior communicating artery is present. No aneurysm. Right middle cerebral artery: No abnormality noted. No occlusion or significant stenosis. No aneurysm. Right posterior cerebral artery: No abnormality noted. No occlusion or significant stenosis. No aneurysm. Right intracranial internal carotid artery: No abnormality noted. No significant stenosis. No dissection or occlusion. Right intracranial vertebral artery: No abnormality noted. No significant stenosis. No dissection or occlusion. Left anterior cerebral artery: No abnormality noted. No occlusion or significant stenosis. No aneurysm. Left middle cerebral artery: No abnormality noted. No occlusion or significant stenosis. No aneurysm. Left posterior cerebral artery: No abnormality noted. No occlusion or significant stenosis. No aneurysm. Left intracranial internal carotid artery: No abnormality noted. No significant stenosis. No dissection or occlusion. Left intracranial vertebral artery: No abnormality noted. No significant stenosis. No dissection or occlusion. Basilar artery: No abnormality noted. No occlusion or significant stenosis. No aneurysm. Other vasculature: Patent dural venous sinuses. No vascular malformation. Mastoid air cells: There is mild mucosal thickening in the base of the right mastoid. No fluid. NECK: Right common carotid artery: No abnormality noted. No significant stenosis. No dissection or occlusion. Right extracranial internal carotid artery: There is mild atherosclerotic calcification of the right cervical internal carotid bulb. No stenosis, dissection or aneurysm. Right external carotid artery: No abnormality noted. No occlusion. Right extracranial vertebral artery: No abnormality noted. No significant stenosis. No dissection or occlusion. Left common carotid artery: No abnormality noted. No significant stenosis. No dissection or occlusion. Left extracranial internal carotid artery: No abnormality noted. No significant stenosis. No dissection or occlusion. Left external carotid artery: No abnormality noted. No occlusion. Left extracranial vertebral artery: No abnormality noted. No significant stenosis. No dissection or occlusion. Lung apices: No acute abnormality noted. HEAD and NECK: Bones/joints: No significant abnormality. Soft tissues: No abnormality noted. CAROTID STENOSIS REFERENCE USING NASCET CRITERIA: % ICA stenosis = (1 - narrowest ICA diameter/diameter of distal cervical ICA) x 100. Mild - <50% stenosis. Moderate - 50-69% stenosis. Severe - 70-94% stenosis. Near occlusion - 95-99% stenosis. Occluded - 100% stenosis. IMPRESSION: No large vessel occlusion, aneurysm or dissection in the arteries of the head or neck. ACT 112: N/A Electronically signed by Marii Dsouza 04-08-2025 12:52 PM Supervising Physician Co-Signing Physician Notes Patient is an 84-year-old female with history of diabetes mellitus, hypertension, positional vertigo, gout, PVCs and other medical problems presents with history of strokelike symptoms. Patient developed significant dizziness associated with double vision, gait instability this morning. Patient also felt nauseous and believed the symptoms were different from her usual vertigo symptoms. Telestroke consultation was conducted with her she and patient was advised to give TNK. Patient denies any focal weakness, numbness, chest pain, dyspnea, palpitations, bowel or bladder incontinence, slurred speech, trouble swallowing. Please review HPI for complete details of presentation. I personally reviewed blood work and imaging studies. CT head showed cerebral atrophy. CTA head and neck showed no acute process. On exam patient is obese, no apparent distress, normocephalic atraumatic, EOMI, left eye ptosis,+ double vision, S1-S2,+ murmur, no pedal edema, clear to auscultation, normal breath sounds, abdomen soft, nontender, normal bowel sounds, alert, awake, oriented, chronic right foot drop,+ chronic decreased bilateral lower extremity sensation due to neuropathy. Grossly no focal deficits. Patient is admitted for management of strokelike symptoms/diplopia. R/O CVA. S/P TNK. Patient will be admitted to ICU for further management. Allow permissive hypertension. No aspirin, Plavix, anticoagulation for 24 hours post TNK. Will repeat CT head after 24 hours per protocol. Obtain MRI brain, echo, lipid panel, A1c. Appreciate bpm analyst help. Will consult neurology, neurochecks. PT OT, speech eval. May need ophthalmology evaluation as outpatient. I personally interviewed and examined the patient at bedside. I have reviewed the advanced practitioner's documentation on the date of service referred in note and agree with plan. Patient's care is coordinated with Barbara Watts NP. Please refer to the documentation above for details of patient's presentation and for discussion of other issues. I spent a total of 38minutes coordinating, documenting, and providing care for this patient excluding time spent in the performance of separately billed services or time spent by another provider/QHP.
[2025-04-08] MEDS ORDERED: ACETAMINOPHEN 325 MG TAB PO PRN (14:53)
[2025-04-08] MEDS ORDERED: GLUCOSE 40% GEL 15 GM TUBE PO PRN (14:53)
[2025-04-08] MEDS ORDERED: LABETALOL HCL IV 5 MG/ML 20ML IV PRN (14:53)
[2025-04-08] MEDS ORDERED: DEXTROSE 50% 50 ML SYRINGE IV PRN (14:53)
[2025-04-08] MEDS ORDERED: PHARMACIST DISCHARGE MED REC CONSULT PRN (14:53)
[2025-04-08] MEDS ORDERED: GLUCOSE 10 TAB/TUBE PO PRN (14:53)
[2025-04-08] MEDS ORDERED: CARBOHYDRATES FOR HYPOGLYCEMIA PO PRN (14:53)
[2025-04-08] MEDS ORDERED: GLUCAGON FOR INJ 1 MG VIAL SQ PRN (14:53)
--- NOTE | 2025-04-08 15:28 | XCELERA ---
[id number]
--- NOTE | 2025-04-08 15:32 | Critical Care Consultation ---
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 Her neuro symptoms have resolved and her NIH is 0. Recommendations: 1. Status post TNK: Continue to observe in the ICU 24 hours for bleeding complications per protocol. Repeat CT scan to tomorrow afternoon and if unremarkable, can be dismissed from the ICU. Will need echocardiogram, PT and OT evaluations, as well as speech therapy evaluation 2. Acute diplopia: Resolved. Await MRI imaging 3. Hypertension: Continue metoprolol. Can likely restart her losartan and felodipine sequentially based on blood pressure control. Will try to keep blood pressure around 140-170 currently. 3. Continue her outpatient medications The above recommendations and plan were discussed with the patient as well as with the bedside critical care nurse to. Questions were answered the best my ability. She expressed understanding and is in agreement with the plan as outlined. History of Present Illness Attending Physician: Mehran Hill MD History of Present Illness Asked by hospitalist to assist in evaluation management this patient status post systemic thrombolytics for strokelike symptoms. History is obtained from discussion with the patient as well as review of the electronic medical record. Patient is an 84-year-old female with a history of hypertension and vertigo who had the acute onset of diplopia earlier today. She was brought in the emergency room and had CT imaging performed which was unrevealing. Telestroke consultation was conducted with Nora who recommended administration of systemic thrombolysis patient was consented for TNK and this was administered around 1 PM. She was then admitted to the ICU. She was mildly hypertensive on presentation but did not require additional medications. She states she is taking all of her blood pressure medicines. I assessed the patient in the ICU. She is now awake alert and conversant. Her diplopia is resolved. NIH is 0. She denies any nausea vomiting. No dizziness or headache. Allergies Allergy/AdvReac Type Severity Reaction Status Date / Time WANDY Inhibitors Allergy Unknown high bp Verified 08/10/20 20:20 hydrocodone AdvReac Intermediate N/V Verified 08/10/20 20:20 Home Medications Medication Instructions Recorded Confirmed Type allopurinol 300 mg tablet 300 mg PO QAM 07/21/18 04/08/25 History aspirin 81 mg tablet,delayed 81 mg PO HS 07/21/18 04/08/25 History release escitalopram oxalate 10 mg tablet 10 mg PO QAM 07/21/18 04/08/25 History felodipine 2.5 mg tablet,extended 2.5 mg PO QAM 07/21/18 04/08/25 History release 24 hr fluticasone 250 mcg-salmeterol 50 1 inh inhalation DIRECTED 07/21/18 04/08/25 History mcg/dose blistr powdr for inhalation (Advair Diskus) metoprolol succinate 50 mg 50 mg PO HS 07/21/18 04/08/25 History tablet,extended release 24 hr omeprazole 20 mg capsule,delayed 20 mg PO Q2D 07/21/18 04/08/25 History release escitalopram oxalate 5 mg tablet 5 mg PO QPM 08/10/20 04/08/25 History gabapentin 600 mg tablet 600 mg PO HS 04/08/25 04/08/25 History losartan 100 mg tablet 100 mg PO DAILY 04/08/25 04/08/25 History semaglutide 2 mg/dose (8 mg/3 mL) 8 mg subcut WK 04/08/25 04/08/25 History subcutaneous pen injector (Ozempic) Patient History Medical History Contusion of right knee COPD (chronic obstructive pulmonary disease) HTN (hypertension) Obesity (BMI 30-39.9) Pancreatitis Tibialis anterior tendon tear, traumatic Surgical History Status post right knee replacement Social History Smoking Status: Never smoker Preferred Language: Russian current occupational status: retired Feels Safe at Home: Yes Review of Systems Review of Systems: Please refer to admission H&P. No additions or deletions Physical Exam Constitutional: WD/WN, vitals as above Neck: trachea midline, no thyromegaly Respiratory: normal respiratory effort, lungs clear to auscultation Cardiovascular: RRR, no murmur, no edema Gastrointestinal (Abdomen): normal bowel sounds, soft, nontender, no hepatosplenomegaly Musculoskeletal: Extremities: extremities normal to inspection Skin: no rashes, warm and dry Neurologic: Normal neuroexam. No evidence of cerebellar dysfunction. Lymphatic: no cervical lymphadenopathy Results & Data Results & Data Vital Signs (Past 12 Hours) Vital Signs Temp Pulse Pulse Resp BP BP Pulse Ox 04/08/25 14:46 04/08/25 14:37 36.6 C 63 18 140/65 97 04/08/25 14:22 36.5 C 61 18 149/70 H 97 04/08/25 14:07 36.5 C 60 18 144/74 H 97 04/08/25 13:52 36.6 C 62 18 140/67 97 04/08/25 13:37 36.6 C 62 18 128/65 96 04/08/25 13:22 36.5 C 62 20 153/86 H 95 04/08/25 13:07 36.6 C 64 16 155/76 H 96 04/08/25 12:48 69 23 161/65 H 95 04/08/25 12:30 70 11 L 157/73 H 04/08/25 12:08 70 04/08/25 12:05 36.4 C L 69 18 152/117 H 93 O2 Del Method 04/08/25 14:46 Room Air 04/08/25 14:37 Room Air 04/08/25 14:22 Room Air 04/08/25 14:07 Room Air 04/08/25 13:52 Room Air 04/08/25 13:37 Room Air 04/08/25 13:22 Room Air 04/08/25 13:07 Room Air 04/08/25 12:48 04/08/25 12:30 04/08/25 12:08 04/08/25 12:05 Room Air Critical Care Results & Data Vital Signs (Past 12 Hours) Vital Signs Temp Pulse Pulse Resp BP BP Pulse Ox 04/08/25 14:46 04/08/25 14:37 36.6 C 63 18 140/65 97 04/08/25 14:22 36.5 C 61 18 149/70 H 97 04/08/25 14:07 36.5 C 60 18 144/74 H 97 04/08/25 13:52 36.6 C 62 18 140/67 97 04/08/25 13:37 36.6 C 62 18 128/65 96 04/08/25 13:22 36.5 C 62 20 153/86 H 95 11/30/25 13:07 36.6 C 64 16 155/76 H 96 04/08/25 12:48 69 23 161/65 H 95 04/08/25 12:30 70 11 L 157/73 H 04/08/25 12:08 70 04/08/25 12:05 36.4 C L 69 18 152/117 H 93 O2 Del Method 04/08/25 14:46 Room Air 04/08/25 14:37 Room Air 04/08/25 14:22 Room Air 04/08/25 14:07 Room Air 04/08/25 13:52 Room Air 04/08/25 13:37 Room Air 04/08/25 13:22 Room Air 04/08/25 13:07 Room Air 04/08/25 12:48 04/08/25 12:30 04/08/25 12:08 04/08/25 12:05 Room Air Lab & Micro Results (Past 24 Hours) RBC 4.78 M/uL (4.20-5.40) 04/08/25 WBC 9.04 K/ul (4.8-10.8) 04/08/25 Hgb 14.6 g/dL (12.0-16.0) 04/08/25 Hct 41.8 % (37.0-47.0) 04/08/25 MCV 87.4 fL (80.0-100.0) 04/08/25 MCH 30.5 pg (25.0-34.0) 04/08/25 MCHC 34.9 g/dL (32.0-36.0) 04/08/25 RDW Standard Deviation 41.9 fL (36.4-46.3) 04/08/25 RDW Coefficient of Variation 13.1 % (11.5-14.5) 04/08/25 Plt Count 266 K/uL (130-400) 04/08/25 MPV 9.3 fL (9.4-12.4) L 04/08/25 Neutrophils (%) (Auto) 55.2 % 04/08/25 Lymphocytes (%) (Auto) 29.9 % 04/08/25 Monocytes # (Auto) 0.74 K/uL (0.11-0.59) H 04/08/25 Eosinophils # (Auto) 0.54 K/uL (0.00-0.50) H 04/08/25 Immature Granulocyte % (Auto) 0.4 % 04/08/25 Neutrophils # (Auto) 4.99 K/uL (1.40-6.50) 04/08/25 Lymphocytes # (Auto) 2.70 K/uL (1.20-3.40) 04/08/25 Monocytes # (Auto) 0.74 K/uL (0.11-0.59) H 04/08/25 Eosinophils # (Auto) 0.54 K/uL (0.00-0.50) H 04/08/25 Basophils # (Auto) 0.03 K/uL (0.00-0.20) 04/08/25 Immature Granulocyte # (Auto) 0.04 K/uL (0.01-0.20) 5 Na 139 mmol/L (136-145) 04/08/25 K 4.1 mmol/L (3.5-5.1) 04/08/25 Cl 106 mmol/L (98-107) 04/08/25 CO2 27 mmol/L (21-32) 04/08/25 Anion Gap 6 (3-11) 04/08/25 BUN 16 mg/dl (6-23) 04/08/25 Creatinine 0.56 mg/dl (0.6-1.2) L 04/08/25 BUN/Creatinine Ratio 28.6 (10-20) H 04/08/25 Glu 95 mg/dl (70-99(Fasting)) 04/08/25 Ca 9.0 mg/dl (8.6-10.3) 04/08/25 Total Bilirubin 0.5 mg/dl (0.2-1.0) 04/08/25 AST 18 U/L (13-39) 04/08/25 ALT 11 U/L (7-52) 04/08/25 Alkaline Phosphatase 53 U/L (34-104) 04/08/25 TP 6.9 gm/dl (6.0-8.3) 04/08/25 Albumin 4.2 gm/dl (3.4-5.0) 04/08/25 Globulin 2.7 gm/dl (2.5-4.0) 04/08/25 Albumin/Globulin Ratio 1.6 (0.9-2) 04/08/25 Mg 1.6 mg/dl (1.7-2.4) L 04/08/25 12:05 Calcium Level 9.0 mg/dl (8.6-10.3) 04/08/25 12:05 Prothromb Time International Ratio 1.0 (0.9-1.1) 04/08/25 12:0 5 Diagnostic Findings (Past 24 Hours) Head CT 04/08/25 12:11 EXAM: CT Head Without Intravenous Contrast INDICATION: Neurologic deficit TECHNIQUE: Axial computed tomography images of the head/brain without intravenous contrast. Sagittal and/or coronal reformats are provided. Sagittal and coronal reformatted images were created and reviewed. This CT exam was performed using one or more of the following dose reduction techniques: automated exposure control, adjustment of the mA and/or kV according to patient size, and/or use of iterative reconstruction technique. COMPARISON: No relevant prior studies available. FINDINGS: Limitations: None. Brain and extra-axial spaces: There is age appropriate cortical atrophy and chronic ischemic periventricular white matter hypodensity. No acute infarct, hemorrhage or mass noted. Bones/joints: No acute changes. Soft tissues: No acute abnormality noted. Vasculature: No acute abnormality noted. Sinuses: No layering fluid in the visualized portions of the paranasal sinuses. Mastoid air cells: No mastoid effusion. Orbits: No acute abnormality noted. IMPRESSION: Cerebral atrophy. No acute changes. ACT 112: N/A Electronically signed by Marii Dsouza 04-08-2025 12:52 PM Head CTA 04/08/25 12:11 [place] Images: 0 EXAM: CT Angiography Head and Neck With Intravenous Contrast INDICATION: Neurologic deficit TECHNIQUE: [place]/head and neck CT angiography protocol performed with intravenous contrast. Sagittal and coronal reformatted images were created and reviewed. This CT exam was performed using one or more of the following dose reduction techniques: automated exposure control, adjustment of the mA and/or kV according to patient size, and/or use of iterative reconstruction technique. MIP reconstructed images were created and reviewed. CONTRAST: 112 ml of Optiray 320 was administered intravenously. COMPARISON: None. FINDINGS: HEAD: Right anterior cerebral artery: No abnormality noted. No occlusion or significant stenosis. Anterior communicating artery is present. No aneurysm. Right middle cerebral artery: No abnormality noted. No occlusion or significant stenosis. No aneurysm. Right posterior cerebral artery: No abnormality noted. No occlusion or significant stenosis. No aneurysm. Right intracranial internal carotid artery: No abnormality noted. No significant stenosis. No dissection or occlusion. Right intracranial vertebral artery: No abnormality noted. No significant stenosis. No dissection or occlusion. Left anterior cerebral artery: No abnormality noted. No occlusion or significant stenosis. No aneurysm. Left middle cerebral artery: No abnormality noted. No occlusion or significant stenosis. No aneurysm. Left posterior cerebral artery: No abnormality noted. No occlusion or significant stenosis. No aneurysm. Left intracranial internal carotid artery: No abnormality noted. No significant stenosis. No dissection or occlusion. Left intracranial vertebral artery: No abnormality noted. No significant stenosis. No dissection or occlusion. Basilar artery: No abnormality noted. No occlusion or significant stenosis. No aneurysm. Other vasculature: Patent dural venous sinuses. No vascular malformation. Mastoid air cells: There is mild mucosal thickening in the base of the right mastoid. No fluid. NECK: Right common carotid artery: No abnormality noted. No significant stenosis. No dissection or occlusion. Right extracranial internal carotid artery: There is mild atherosclerotic calcification of the right cervical internal carotid bulb. No stenosis, dissection or aneurysm. Right external carotid artery: No abnormality noted. No occlusion. Right extracranial vertebral artery: No abnormality noted. No significant stenosis. No dissection or occlusion. Left common carotid artery: No abnormality noted. No significant stenosis. No dissection or occlusion. Left extracranial internal carotid artery: No abnormality noted. No significant stenosis. No dissection or occlusion. Left external carotid artery: No abnormality noted. No occlusion. Left extracranial vertebral artery: No abnormality noted. No significant stenosis. No dissection or occlusion. Lung apices: No acute abnormality noted. HEAD and NECK: Bones/joints: No significant abnormality. Soft tissues: No abnormality noted. CAROTID STENOSIS REFERENCE USING NASCET CRITERIA: % ICA stenosis = (1 - narrowest ICA diameter/diameter of distal cervical ICA) x 100. Mild - <50% stenosis. Moderate - 50-69% stenosis. Severe - 70-94% stenosis. Near occlusion - 95-99% stenosis. Occluded - 100% stenosis. IMPRESSION: No large vessel occlusion, aneurysm or dissection in the arteries of the head or neck. ACT 112: N/A Electronically signed by Marii Dsouza 04-08-2025 13:24 PM Neck CTA 04/08/25 12:11 EXAM: CT Angiography Head and Neck With Intravenous Contrast INDICATION: Neurologic deficit TECHNIQUE: [place]/head and neck CT angiography protocol performed with intravenous contrast. Sagittal and coronal reformatted images were created and reviewed. This CT exam was performed using one or more of the following dose reduction techniques: automated exposure control, adjustment of the mA and/or kV according to patient size, and/or use of iterative reconstruction technique. MIP reconstructed images were created and reviewed. CONTRAST: 112 ml of Optiray 320 was administered intravenously. COMPARISON: None. FINDINGS: HEAD: Right anterior cerebral artery: No abnormality noted. No occlusion or significant stenosis. Anterior communicating artery is present. No aneurysm. Right middle cerebral artery: No abnormality noted. No occlusion or significant stenosis. No aneurysm. Right posterior cerebral artery: No abnormality noted. No occlusion or significant stenosis. No aneurysm. Right intracranial internal carotid artery: No abnormality noted. No significant stenosis. No dissection or occlusion. Right intracranial vertebral artery: No abnormality noted. No significant stenosis. No dissection or occlusion. Left anterior cerebral artery: No abnormality noted. No occlusion or significant stenosis. No aneurysm. Left middle cerebral artery: No abnormality noted. No occlusion or significant stenosis. No aneurysm. Left posterior cerebral artery: No abnormality noted. No occlusion or significant stenosis. No aneurysm. Left intracranial internal carotid artery: No abnormality noted. No significant stenosis. No dissection or occlusion. Left intracranial vertebral artery: No abnormality noted. No significant stenosis. No dissection or occlusion. Basilar artery: No abnormality noted. No occlusion or significant stenosis. No aneurysm. Other vasculature: Patent dural venous sinuses. No vascular malformation. Mastoid air cells: There is mild mucosal thickening in the base of the right mastoid. No fluid. NECK: Right common carotid artery: No abnormality noted. No significant stenosis. No dissection or occlusion. Right extracranial internal carotid artery: There is mild atherosclerotic calcification of the right cervical internal carotid bulb. No stenosis, dissection or aneurysm. Right external carotid artery: No abnormality noted. No occlusion. Right extracranial vertebral artery: No abnormality noted. No significant stenosis. No dissection or occlusion. Left common carotid artery: No abnormality noted. No significant stenosis. No dissection or occlusion. Left extracranial internal carotid artery: No abnormality noted. No significant stenosis. No dissection or occlusion. Left external carotid artery: No abnormality noted. No occlusion. Left extracranial vertebral artery: No abnormality noted. No significant stenosis. No dissection or occlusion. Lung apices: No acute abnormality noted. HEAD and NECK: Bones/joints: No significant abnormality. Soft tissues: No abnormality noted. CAROTID STENOSIS REFERENCE USING NASCET CRITERIA: % ICA stenosis = (1 - narrowest ICA diameter/diameter of distal cervical ICA) x 100. Mild - <50% stenosis. Moderate - 50-69% stenosis. Severe - 70-94% stenosis. Near occlusion - 95-99% stenosis. Occluded - 100% stenosis. IMPRESSION: No large vessel occlusion, aneurysm or dissection in the arteries of the head or neck. 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
[2025-04-08 15:55] LABS: Appearance Urine Clear (Clear); Glucose Urine UA Negative (Negative)
[2025-04-08] MEDS: MAGNESIUM SULFATE / D5W 1 GM/100 ML BAG IV SCH (17:09)
[2025-04-08] MEDS: INSULIN ASPART PER UNIT CHARGE SC SCH (18:01)
[2025-04-08] MEDS: STAT IV/IM STA (18:02)
[2025-04-08] MEDS: LORAZEPAM IV ONE (20:24)
[2025-04-08] MEDS: Nursing to Pharmacy Communication SCH (21:00)
[2025-04-08] MEDS: ESCITALOPRAM OXALATE 10 MG TAB PO SCH (21:21)
[2025-04-08] MEDS: METOPROLOL SUCC 50MG EXT REL TAB PO SCH (21:22)
[2025-04-08] MEDS: GABAPENTIN 600 MG TAB PO SCH (21:22)
--- NOTE | 2025-04-08 23:39 | Magnetic Resonance Report ---
Exam(s): MRI HEAD Without Contrast EXAM: MR Head Without Intravenous Contrast CLINICAL HISTORY: Reason for exam: stroke. TECHNIQUE: Magnetic resonance images of the head/brain without intravenous contrast in multiple planes. COMPARISON: Prior head CT from April 08, 2025. FINDINGS: Brain: Mild nonspecific white matter changes. No mass. No hemorrhage. No acute infarct. The flow voids at the base the brain are intact. Ventricles: Unremarkable. No ventriculomegaly. Bones/joints: Unremarkable. No acute fracture. Sinuses: Chronic maxillary and ethmoid sinusitis. No acute sinusitis. Mastoid air cells: There is a small mild of fluid in the mastoid air cells. No mastoid effusion. Orbits: Bilateral lens replacements. IMPRESSION: No evidence of acute intracranial pathology. Electronically signed by: Angela Tapia MD 04/08/25 23:39 PM
[2025-04-09] MEDS: INSULIN ASPART PER UNIT CHARGE SC SCH (00:17)
[2025-04-09 04:56] LABS: Hematocrit (blood only) 39.0 % (37.0-47.0); Hemoglobin 13.8 g/dL (12.0-16.0); Immature Granulocytes # (auto) 0.01 K/uL (0.01-0.20); Immature Granulocytes % (auto) 0.1 %; Mean Corpuscular Hemoglobin 30.9 pg (25.0-34.0); Mean Corpuscular Volume 87.2 fL (80.0-100.0); Platelet Count 245 K/uL (130-400); RDW Standard Deviation 41.0 fL (36.4-46.3); Red Blood Count 4.47 M/uL (4.20-5.40); White Blood Count 8.09 K/ul (4.8-10.8)
[2025-04-09 05:13] LABS: Anion Gap 5.0 (3-11); Blood Urea Nitrogen 10.0 mg/dl (6-23); Calcium 8.8 mg/dl (8.6-10.3); Carbon Dioxide 27.0 mmol/L (21-32); Chloride 106.0 mmol/L (98-107); Cholesterol 97.0 mg/dl (0-200); Creatinine Clr Calc Pharmacy 81.8 ml/min; Glucose 90.0 mg/dl (70-99(Fasting)); HDL Cholesterol 39.0 mg/dl; Magnesium 2.0 mg/dl (1.7-2.4); Potassium 3.7 mmol/L (3.5-5.1); Sodium 138.0 mmol/L (136-145); Triglycerides 127.0 mg/dl (0-150)
[2025-04-09] MEDS: POTASSIUM CHLORIDE CRTAB 20 MEQ TABCR PO ONE (06:01)
--- NOTE | 2025-04-09 07:42 | Critical Care Progress Note ---
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 On presentation NIHSS scale was 1, telehealth consultation was done with Neurology team, recommended TKA. Pt received TKA on 04/08/25 ; 12: 52 PM. Stable course after ICU admission with resolved initial sx of double vision and dizziness, and no new neurological sx. Neuro: - S/P TKA for Stroke like sx. - Resolved diplopia and dizziness. - NIHSS scale: 0---< 1 on presentation. - No new neuro sx. - Imaging( CT head, CT angio Head and Neck, MRI ) : reassuring with no e/o major stroke. - Echo: Negative bubble study. Plan: Repeat CT head 24 hour after TKA admin( 1 Pm today). Can transfer out of ICU if stable until then, anticipate this based on clinical exam. Neurology formal eval today. Pending OT/PT, Speech, swallow eval. Cardio: Blood pressure around 140-170; Most readings in 140-150s; BP this morning in 120s. will continue holding home BP meds Losartan. Continue metoprolol and felodipine. Respi: - No issues, sats maintained at RA. GI: - On NPO, continue until CT repeat. - Continue home meds Renal/electrolytes: - Stable. Dispo: Likely downgrade after CT repeat DVT prophylaxis: SCDs Admission and Anticipated Discharge Date Admission Date: April 08, 2025 Supervising Physician Co-Signing Physician Notes Dr. Marcos was resident physician during care of patient. I separately evaluated patient for muñoz portions of the history and the exam. I was present during the critical portion of medical decision making, and I discussed the case with the resident. I generally agree with the findings and plan. During my evaluation patient had mild ptosis of the left eyelid, patient looked in the mirror reports that it appears to be at her baseline (reports she has a chronic mild ptosis of the left eye) double vision has resolved and feels back to baseline. Denies any tick exposure or history of Lyme disease. Sensation of trigeminal nerve normal bilaterally, no weakness of facial muscles, no clear indication of Valle's palsy: Reported chronic ptosis of eyelid, sending Lyme titer for completeness. Not withstanding patient should be stable for downgrade versus discharge after 24 hours. Subjective 84 yo admitted for observation in ICU S/P TKA administration for Stroke. Endorses feeling back to baseline this morning, no more blurring/ double vision. No PATHAK, no numbness, tingling anywhere, no muscle weakness. No trouble breathing, swallowing. No speech issue. Review of Systems Review of Systems: As per HPI Physical Exam Physical Exam: Constitutional: Well appearing, No acute distress, no speech changes HEENT: Atraumatic, Normocephalic, No conjunctival injection CVS: S1 S2 systolic murmur +, Regular Rhythm Respiratory: BL equal air entry with NVBS. No rhonchi, wheezes, or crackles. No increased work of breathing GI: Soft, Nondistended, Nontender MSK: No gross deformities noted Skin: Warm, Dry, No rashes Neuro: Alert, Oriented to TPP, No Focal deficit. Cranial Nerve II- XII grossly intact. NIHSS: 0 Psych: Mood and Affect congruent, Cooperative on exam Results & Data Results & Data Vital Signs (Past 12 Hours) Vital Signs Temp Pulse Pulse Resp BP Pulse Ox O2 Del Method 04/09/25 06:52 37 C 71 20 131/72 93 Room Air 04/09/25 05:52 36.9 C 67 18 142/91 H 93 Room Air 04/09/25 04:52 36.9 C 68 18 119/79 93 Room Air 04/09/25 03:52 37 C 68 18 129/84 96 Room Air 04/09/25 02:52 36.9 C 69 18 135/71 93 Room Air 04/09/25 01:52 37 C 73 20 132/77 93 Room Air 04/09/25 00:52 37.1 C 79 18 140/73 94 Room Air 04/09/25 00:00 84 04/08/25 23:52 37.2 C 81 16 129/79 93 Room Air 04/08/25 22:52 37.1 C 86 16 145/90 H 95 Room Air 04/08/25 21:52 36.9 C 75 20 151/76 H 93 Room Air 04/08/25 20:52 37 C 76 18 152/95 H 94 Room Air 04/08/25 19:52 37.1 C 84 18 151/90 H 94 Room Air
[2025-04-09 07:55] LABS: Hemoglobin A1C 5.1 % (4.5-5.6)
--- NOTE | 2025-04-09 08:22 | Billing Data ---
Date of Service April 09, 2025 Coding Level of Care Code 00018 SUB INP/OBS CARE
[2025-04-09 08:30] VITALS: TEMP 98.2
[2025-04-09] MEDS ORDERED: ESCITALOPRAM OXALATE 10 MG TAB PO SCH (09:00)
[2025-04-09] MEDS: FELODIPINE 2.5 MG TABCR PO SCH (09:16)
[2025-04-09] MEDS: ESCITALOPRAM OXALATE 10 MG TAB PO SCH (09:16)
--- NOTE | 2025-04-09 09:53 | Electrocardiogram Report ---
Test Reason : Blood Pressure : */* mmHG Vent. Rate : 61 BPM Atrial Rate : 61 BPM P-R Int : 200 ms QRS Dur : 114 ms QT Int : 464 ms P-R-T Axes : -11 -41 216 degrees QTcB Int : 467 ms Normal sinus rhythm Left axis deviation Left ventricular hypertrophy with repolarization abnormality ( R in aVL ) Anteroseptal infarct , age undetermined Abnormal ECG When compared with ECG of 10-Aug-2020 18:38, T wave inversion now evident in Inferior leads T wave inversion now evident in Lateral leads Confirmed by Daniel Haji ([id number]) on 04/09/2025 9:53:12 AM Referred By: REFERRED SELF Confirmed By: Daniel Haji
--- NOTE | 2025-04-09 10:05 | Electrocardiogram Report ---
Test Reason : Blood Pressure : */* mmHG Vent. Rate : 72 BPM Atrial Rate : 72 BPM P-R Int : 196 ms QRS Dur : 124 ms QT Int : 406 ms P-R-T Axes : -1 -33 268 degrees QTcB Int : 444 ms Normal sinus rhythm Left axis deviation Minimal voltage criteria for LVH, may be normal variant Anterior infarct (cited on or before 08-Apr-2025) Abnormal ECG When compared with ECG of 08-Apr-2025 13:05, (unconfirmed) No significant change Confirmed by Daniel Haji ([id number]) on 04/09/2025 10:04:29 AM Referred By: REFERRED SELF Confirmed By: Daniel Haji
[2025-04-09 11:24] VITALS: O2SAT 98
--- NOTE | 2025-04-09 12:18 | Neurology Consultation ---
Date of Consultation April 09, 2025 Assessment & Plan (1) Stroke-like symptoms: Elli Garcia is a 84 yo F presenting with a transient episode of binocular diplopia that resolved spontaneously, now felt most likely related to underlying vertigo rather than a cerebrovascular event, given the negative MRI and rapid recovery. However she did receive TNK. Recommend further PCP follow-up for risk factor reduction but can stay on aspirin 81mg daily. -- Continue risk factor modification -- Okay to remain on aspirin 81mg daily -- Can likely be discharged after the post 24 hr TNK scan if does well with PT. -- Please contact us with any further questions Telehealth Consultation Telehealth Information Telehealth Information: I performed this visit using a real-time telehealth connection between my locati on and the patients originating location ([facility]). After connecting through interactive tele-video, patient was identified by name and date of and/or wristband check.Patient (or authorized healthcare marketing sales representative) was informed that this was a telemedicine visit and it was being conducted confidentially over secure lines. My office door was closed and no one else was present in the room with me.Patient (or authorized healthcare marketing sales representative) provided consent to proceed with the visit, expressed an understanding of privacy and security of the telemedicine visit, and gave permission to have a hospital marketing sales representative in the room in order to assist with the visit and to conduct portions of the visit, as needed. I informed the patient (or authorized healthcare marketing sales representative) that I reviewed their record and presented the opportunity for them to ask any questions regarding the visit today. The patient agreed to participate. History of Present Illness Reason for Consultation: Vertigo s/p TNK Requesting Physician: Dr. Palma Attending Physician: Raul Palma DO History of Present Illness The patient was reported to have presented with acute binocular diplopia, initially generalized but most pronounced on left gaze, without associated numbness, weakness, or headache. She described a longstanding history of vertigo but noted this episode was distinct because she never had double vision with her vertigo before. Symptoms resolved by the afternoon of the same day. Blood pressure was noted to be elevated on arrival but had since normalized. An MRI performed during the admission showed no acute infarct or scarring. She remained on aspirin as an antiplatelet agent and was awaiting rehabilitation evaluation 24 hours after administration of thrombolytic therapy. Symptoms fully resolved. Allergies Allergy/AdvReac Type Severity Reaction Status Date / Time WANDY Inhibitors Allergy Unknown high bp Verified 08/10/20 20:20 hydrocodone AdvReac Intermediate N/V Verified 08/10/20 20:20 Home Medications Medication Instructions Recorded Confirmed Type allopurinol 300 mg tablet 300 mg PO QAM 07/21/18 04/08/25 History aspirin 81 mg tablet,delayed 81 mg PO HS 07/21/18 04/08/25 History release escitalopram oxalate 10 mg tablet 10 mg PO QAM 07/21/18 04/08/25 History felodipine 2.5 mg tablet,extended 2.5 mg PO QAM 07/21/18 04/08/25 History release 24 hr fluticasone 250 mcg-salmeterol 50 1 inh inhalation DIRECTED 07/21/18 04/08/25 History mcg/dose blistr powdr for inhalation (Advair Diskus) metoprolol succinate 50 mg 50 mg PO HS 07/21/18 04/08/25 History tablet,extended release 24 hr omeprazole 20 mg capsule,delayed 20 mg PO Q2D 07/21/18 04/08/25 History release escitalopram oxalate 5 mg tablet 5 mg PO QPM 08/10/20 04/08/25 History gabapentin 600 mg tablet 600 mg PO HS 04/08/25 04/08/25 History losartan 100 mg tablet 100 mg PO DAILY 04/08/25 04/08/25 History semaglutide 2 mg/dose (8 mg/3 mL) 8 mg subcut WK 04/08/25 04/08/25 History subcutaneous pen injector (Ozempic) Patient History Medical History Contusion of right knee COPD (chronic obstructive pulmonary disease) HTN (hypertension) Obesity (BMI 30-39.9) Pancreatitis Tibialis anterior tendon tear, traumatic Surgical History Status post right knee replacement Social History Smoking Status: Never smoker Hx Alcohol Use: No Hx Substance Use: No Preferred Language: Italian Communication Ability: Effective Contingents Supervisor Required: No Beliefs That Will Affect Care: None Current Living Situation: Family current occupational status: retired Feels Safe at Home: Yes Safety Concerns: Feels Safe At This Time Assistive Devices: Cane, Walker and Wheelchair Review of Systems +Vertigo, resolved Physical Exam Neurological Examination: Mental Status: Awake and alert. Oriented to person, place, and time. Fluent. Comprehension intact. Affect appropriate. Cranial Nerves: II: Reads NIHSS cards, pupils 3/3 to 2/2, III/IV/: Versions intact without nystagmus, no gaze preference. V: Facial sensation symmetric to light touch VII: Facial expression symmetric Motor: Strength was symmetric and antigravity throughout. Pronator drift was absent. There were no abnormal movements. Sensory: Sensation to light touch was intact. Results & Data Vital Signs (Past 12 Hours) Vital Signs Temp Pulse Resp BP Pulse Ox O2 Del Method 04/09/25 10:52 88 18 120/82 98 Room Air 04/09/25 09:52 86 20 140/75 96 Room Air 04/09/25 08:52 85 20 134/80 96 Room Air 04/09/25 07:52 36.8 C 80 17 126/71 96 Room Air 04/09/25 06:52 37 C 71 20 131/72 93 Room Air 04/09/25 05:52 36.9 C 67 18 142/91 H 93 Room Air 04/09/25 04:52 36.9 C 68 18 119/79 93 Room Air 04/09/25 03:52 37 C 68 18 129/84 96 Room Air 04/09/25 02:52 36.9 C 69 18 135/71 93 Room Air 04/09/25 01:52 37 C 73 20 132/77 93 Room Air 04/09/25 00:52 37.1 C 79 18 140/73 94 Room Air Laboratory Results Abnormal lab results 04/08/25 04/08/25 04/09/25 Range/Units 12:05 14:50 04:26 MPV 9.3 L (9.4-12.4) fL Bond # (Auto) 0.74 H 0.80 H (0.11-0.59) K/uL Eos # (Auto) 0.54 H (0.00-0.50) K/uL Creatinine 0.56 L 0.48 L (0.6-1.2) mg/dl BUN/Creatinine Ratio 28.6 H 20.8 H (10-20) Magnesium 1.6 L (1.7-2.4) mg/dl Urine pH 8.0 H (4.5-7.5) Ur Specific [place] > 1.045 H (1.000-1.030) Diagnostic Findings MRI brain and CTA head and neck - Unremarkable
[2025-04-09 12:24] VITALS: BP 103/72; PULSE 83; RESP 24
--- NOTE | 2025-04-09 13:23 | CT Scan Report ---
CT head/brain wo con CLINICAL HISTORY: 84 years-old Female with Post TPA/TNK 24 hour. Acute strokelike symptoms TECHNIQUE: Multiple axial CT images of the head were obtained without contrast. A dose lowering tech nique was utilized adhering to the principles of ALARA. CT DOSE: 625.8 mGy.cm COMPARISON: Brain MRI and head CT studies 04/08/2025 FINDINGS: No acute intracranial hemorrhage, midline shift, intracranial mass, hydrocephalus, territorial ischem ia or abnormal extra-axial collection. Mild involutional changes with scattered white matter hypodens ities redemonstrated suggestive of chronic microvascular ischemic disease. The calvarium is intact. Prior bilateral lens repair. Minimal mucosal thickening of the paranasal sin uses. IMPRESSION: No acute intracranial abnormality. ACT 112: Negative or not required by law. The above report was generated using voice recognition software. It may contain grammatical, syntax o r spelling errors. Electronically signed by: Keven Donovan M.D. 04/09/2025 1:22 PM
[2025-04-09] MEDS ORDERED: STROKE PATIENT DISCHARGE STA (13:37)
--- NOTE | 2025-04-09 13:40 | Discharge Summary ---
Discharge Summary Date of Service April 09, 2025 Principal Dx & Hospital Course #1 = Principal Diagnosis (1) Stroke-like symptoms: (2) Diplopia: (3) HTN (hypertension): (4) COPD (chronic obstructive pulmonary disease): Plan Patient 84-year-old female presented to the emergency room with acute onset of diplopia and ocular motor palsy. She is worked up as a stroke alert and teleneuro consult recommended TNK administration. Patient was admitted to the hospital for ongoing monitoring. Diplopia completely resolved. She has a chronic droop of her left eyelid. Vital signs are stable. Other evaluation were unremarkable. Was evaluated by neurology the following day who recommended ongoing aspirin therapy. And ongoing treatment for possible TIA. Statin was added to her medical regimen as well. She was seen by therapies and was deemed able to go home. Patient we discharged home follow-up with outpatient [facility]. Notes For Next Care Provider Medication Changes From Visit Lipitor Admission HPI Per Admitting Provider Patient is a 84year old F with a past medical history of Type II DM, hypertension, positional vertigo, nonrheumatic mitral regurg, PVC, peripheral neuropathy, achilles tendonitis (right foot) GERD presenting with stroke-like symptoms. Symptoms began around 9:30 this morning with dizziness and took meclizine without relief. Developed double vision, gait instability, dizziness, left eye palsy at 10am and came here. Hypertensive in ED. Denies fever, chills, weight loss, weakness, headache, cognitive changes, hearing changes, chest pain, SOB, swelling, difficulty breathing, urinary concerns, N/V/D, joint swelling/pain, skin rashes, lesions, bleeding, bruising. Discussed with ED provider stroke workup, treatment in the ED and reason for admission to ICU status post TNK administration. In the emergency department, patient was hypertensive 150's/110's. Diplopia and ocular motor palsy noted in the ED. Symptoms began at 10am, tele neuro consult in the ED with rec for TNK administered at 1252. On aspirin at home with no anticoagulation. EKG: NSR with no ST elevation, rate 61 bpm, QTc 467, LVHHead CT revealed negative. Head/Neck CTA showing no large vessel occlusion, aneurysm or dissection in the arteries of the head or neck. Upon review of labs, Mag noted to 1.6 and replaced. No evidence of infection or sepsis. History obtained primarily from the patient and via hospitalization record. The patient's family was at the bedside and assisted with history of present illness. External chart review obtained from [facility] for labs and home medications. Admission Exam Per Admitting Provider See H&P Discharge Exam Constitutional: Alert HEENT: Mucous membranes moist. Lungs: Clear to auscultation, decreased, no wheezes rales or rhonchi CV: S1-S2, regular Abdomen: Soft, nontender, nondistended Extremities: No significant edema Neuro: No focal deficits, NIHSS=0 Psych: Cooperative, normal mood Updated Medication List Medication Instructions Recorded Confirmed Type allopurinol 300 mg tablet 300 mg PO QAM 07/21/18 04/08/25 History aspirin 81 mg tablet,delayed 81 mg PO HS 07/21/18 04/08/25 History release escitalopram oxalate 10 mg tablet 10 mg PO QAM 07/21/18 04/08/25 History felodipine 2.5 mg tablet,extended 2.5 mg PO QAM 07/21/18 04/08/25 History release 24 hr fluticasone 250 mcg-salmeterol 50 1 inh inhalation DIRECTED 07/21/18 04/08/25 History mcg/dose blistr powdr for inhalation (Advair Diskus) metoprolol succinate 50 mg 50 mg PO HS 07/21/18 04/08/25 History tablet,extended release 24 hr omeprazole 20 mg capsule,delayed 20 mg PO Q2D 07/21/18 04/08/25 History release escitalopram oxalate 5 mg tablet 5 mg PO QPM 08/10/20 04/08/25 History gabapentin 600 mg tablet 600 mg PO HS 04/08/25 04/08/25 History losartan 100 mg tablet 100 mg PO DAILY 04/08/25 04/08/25 History semaglutide 2 mg/dose (8 mg/3 mL) 8 mg subcut WK 04/08/25 04/08/25 History subcutaneous pen injector (Ozempic) atorvastatin 10 mg tablet (Lipitor) 10 mg PO HS #30 tabs 04/09/25 Rx Hospital Stay Data Consultations 04/08/25 13:21 ED Decision to Admit Stat 04/08/25 14:53 Consult Patents Examiner Routine Consult Neurology Routine Diagnostic Imagining Performed 04/08/25 12:11 CT angio head w con Stat CT angio neck with con Stat CT head/brain wo con Stat 04/08/25 14:14 MRI Brain [MR brain wo con] Stat 04/09/25 13:00 CT head/brain wo con Routine Reviewed imaging, laboratory and diagnostic studies. Pertinent findings as below. CBC within normal limits Electrolytes all within normal notes Creatinine 0.48 Triglycerides 127 Cholesterol 97 LDL 33 HDL 39 Urinalysis negative for signs of infection Repeat head CT negative for bleed MRI of the brain negative for acute ischemic event Pending Results Patient Have Any Pending Studies at Discharge: No Discharge Instructions Given to Patient (Per Discharging Provider) Follow-up with your PCP for ongoing care of your chronic medical issues Total Time Total Time Spent Total Time Spent (In Minutes): 26
== END 2025-04-09 14:34 | disposition home or self-care (01) | DRG 149 ==
LOC: ED 11:58 → SUATTDRO 14:13 → 1E 14:13